=== PATIENT | female | born 1935 | race Caucasian/White ===

== ENCOUNTER 2024-06-24 13:08 | Outpatient (CLI) | payer MEDICARE, OTHER | END 2024-06-24 13:09 | disposition home or self-care (01) | LOC: MRI 13:08 | PROVIDERS: ATTEND Orthopaedic Surgery Hand Surgery | DX: M48.02 Spinal stenosis, cervical region (principal); M47.812 Spondylosis without myelopathy or radiculopathy, cervical region; M50.321 Other cervical disc degeneration at C4-C5 level; M50.322 Other cervical disc degeneration at C5-C6 level; M50.323 Other cervical disc degeneration at C6-C7 level; M50.33 Other cervical disc degeneration, cervicothoracic region | CPT/HCPCS: 72141 ==